=== PATIENT | female | born 1985 | race Caucasian/White ===

== ENCOUNTER 2017-11-14 19:28 | Emergency (ER) | payer SELFPAY ==
[~2017-11-14] VITALS: Ht 165.1 cm; Wt 76.4 kg
[2017-11-14] MEDS ORDERED: SINGULAIR PO (19:42)
[2017-11-14] MEDS ORDERED: PROAIR HFA0.09 MG/AC IH (19:42)
[2017-11-14] MEDS ORDERED: TESSALON PERLE100 M1 PO (20:11)
[2017-11-14 20:25] VITALS: BP 109/69
== END 2017-11-14 20:25 | disposition home or self-care (01) ==
LOC: ED 19:28
DX: R05 Cough (principal); F17.210 Nicotine dependence, cigarettes, uncomplicated; J45.909 Unspecified asthma, uncomplicated; Z79.899 Other long term (current) drug therapy